=== PATIENT | male | born 1985 | race Caucasian/White ===

== ENCOUNTER 2024-05-25 09:12 | Inpatient (IN) | payer OTHER ==
[2024-05-25] MEDS ORDERED: morphine SULFATE 4 MG/ML VIAL ONE (10:48)
[2024-05-25] MEDS: morphine CARPU-JECT 4 MG/1 ML DISP.SYRIN IVPUSH ONE (10:51)
[2024-05-25] MEDS: ONDANSETRON 4 MG/2 ML VIAL IVPUSH ONE (11:48)
[2024-05-25] MEDS ORDERED: KETOROLAC TROMETHAMINE 30 MG/1 ML VIAL ONE (12:47)
[2024-05-25] MEDS: KETOROLAC TROMETHAMINE 15 MG/ML VIAL IM ONE (12:52)
[2024-05-25 15:06] LABS: EPI CELLS 13 /uL (0-25.1); HYALINE CASTS 1 /uL (0-3.1); URINE APPEARANCE TURBID; URINE BACTERIA 9 /uL (0-1359); URINE BILIRUBIN NEGATIVE (NEGATIVE); URINE COLOR YELLOW; URINE GLUCOSE (UA) NEGATIVE (NEGATIVE); URINE KETONE TRACE (NEGATIVE); URINE LEUK ESTERASE NEGATIVE (NEGATIVE); URINE NITRITE NEGATIVE (NEGATIVE); URINE PROTEIN 1+ (NEGATIVE); URINE RBC 31 /uL (0-23.9); URINE UROBILINOGEN 0.2 mg/dL (0.2-1.0); URINE WBC 43 /uL (0-25.8)
[2024-05-25 15:50] LABS: BASO % 0.3 % (0-2.0); HEMATOCRIT 42.5 % (35.4-49); HEMOGLOBIN 14.5 GM/dL (11.7-16.9); LYMPH % 8.5 % (8-40); MCH 28.9 pg (25.7-33.7); MCHC 34.1 g/dl (32.0-35.9); MEAN CELL VOLUME 84.7 fl (80-96); MEAN PLT VOLUME 7.1 fl (7.5-11.1); MONO % 4.7 % (3.8-10.2); NEUT % 86.5 % (42.8-82.8); PLATELET COUNT 344 10^3/uL (134-434); RBC 5.02 M/mm3 (4.00-5.60); RDW 13.7 % (11.9-15.9); WHITE BLOOD COUNT 13.5 K/mm3 (4.0-10.0)
[2024-05-25 16:12] LABS: POTASSIUM 4.1 mmol/L (3.5-5.1)
[2024-05-25 16:15] LABS: ALBUMIN 3.8 g/dl (3.4-5.0); BLOOD UREA NITROGEN 13.6 mg/dL (7-18)
[2024-05-25 16:18] LABS: CREATININE 1.2 mg/dL (0.55-1.3)
[2024-05-25 16:19] LABS: BILIRUBIN,TOTAL 0.8 mg/dL (0.2-1); TOT PROT 7.2 g/dl (6.4-8.2)
[2024-05-25] MEDS ORDERED: CEFTRIAXONE 1 GM/50 ML BAG ONE (18:08)
[2024-05-25] MEDS: CEFTRIAXONE 1,000 MG in DEXTROSE 5%-WATER - 50 ML IVPB ONE (18:18)
[2024-05-26] MEDS ORDERED: ACETAMINOPHEN 1000 MG/100 ML BAG IVPB PRN (00:19)
[2024-05-26] MEDS: KETOROLAC TROMETHAMINE 15 MG/ML VIAL IVPUSH PRN (01:06)
[2024-05-26] MEDS ORDERED: morphine SULFATE 4 MG/ML VIAL IM PRN (02:02)
[2024-05-26] MEDS ORDERED: morphine SULFATE 4 MG/ML VIAL IVPUSH PRN (02:43)
[2024-05-26 06:19] VITALS: BMI 26.5
[2024-05-26 07:36] LABS: BASO % 0.3 % (0-2.0); EOS % 0.1 % (0-4.5); HEMATOCRIT 42.2 % (35.4-49); HEMOGLOBIN 14.1 GM/dL (11.7-16.9); LYMPH % 13.4 % (8-40); MCH 28.7 pg (25.7-33.7); MCHC 33.4 g/dl (32.0-35.9); MEAN CELL VOLUME 85.8 fl (80-96); MEAN PLT VOLUME 7.2 fl (7.5-11.1); MONO % 10.3 % (3.8-10.2); NEUT % 75.9 % (42.8-82.8); PLATELET COUNT 324 10^3/uL (134-434); RBC 4.92 M/mm3 (4.00-5.60); RDW 13.3 % (11.9-15.9); WHITE BLOOD COUNT 11.8 K/mm3 (4.0-10.0)
[2024-05-26 07:42] LABS: INR 1.01 (0.83-1.09); PROTHROMBIN TIME (PATIENT) 11.4 SEC (9.7-13.0)
[2024-05-26 08:06] LABS: ALBUMIN 3.6 g/dl (3.4-5.0)
[2024-05-26 08:07] LABS: BLOOD UREA NITROGEN 16.5 mg/dL (7-18)
[2024-05-26 08:10] LABS: CREATININE 1.6 mg/dL (0.55-1.3); PHOSPHOROUS 2.6 mg/dL (2.5-4.9)
[2024-05-26 08:11] LABS: BILIRUBIN,TOTAL 0.9 mg/dL (0.2-1); TOT PROT 6.8 g/dl (6.4-8.2)
[2024-05-26] MEDS ORDERED: LIDOCAINE HCL/PF 2% SDV 5ML VIAL ONE (08:19)
[2024-05-26] MEDS ORDERED: PROPOFOL 20 ML ONE (08:19)
[2024-05-26] MEDS ORDERED: MIDAZOLAM HCL 2 MG/2 ML SINGLE DOSE VIAL ONE (08:20)
[2024-05-26] MEDS ORDERED: TAMSULOSIN HCL 0.4 MG CAP PO SCH (08:30)
[2024-05-26] MEDS ORDERED: ONDANSETRON 4 MG/2 ML VIAL ONE (08:37)
[2024-05-26] MEDS ORDERED: KETOROLAC TROMETHAMINE 30 MG/1 ML VIAL ONE (08:37)
[2024-05-26] MEDS: ceFAZolin SODIUM 1 GM VIAL IVPB ONE ×2 (09:25)
[2024-05-26] MEDS ORDERED: DEXAMETHASONE SOD PHOSPHATE 4 MG/1 ML VIAL ONE (09:26)
[2024-05-26] MEDS ORDERED: ceFAZolin SODIUM 1 GM VIAL ONE (09:26)
[2024-05-26] MEDS ORDERED: PROMETHAZINE HCL 25 MG/1 ML VIAL IVPB PRN (09:35)
[2024-05-26] MEDS ORDERED: ONDANSETRON 4 MG/2 ML VIAL IVPUSH PRN (09:35)
[2024-05-26] MEDS: ACETAMINOPHEN 1000 MG/100 ML BAG IVPB ONE (10:31)
[2024-05-26 11:29] VITALS: RESP 18
[2024-05-26] MEDS: ACETAMINOPHEN 1000 MG/100 ML BAG IVPB SCH ×2 (11:54→17:30)
[2024-05-26] MEDS: SODIUM CHLORIDE 1,000 ML IV SCH ×3 (11:54→12:43)
[2024-05-26] MEDS: TAMSULOSIN HCL 0.4 MG CAP PO SCH (11:55)
[2024-05-26] MEDS: LACTATED RINGERS SOLUTION 1,000 ML IV SCH (11:56)
[2024-05-26] MEDS ORDERED: CEFTRIAXONE 1 GM in DEXTROSE 5%-WATER - 50 ML IVPB SCH (16:00)
[2024-05-26] MEDS: CEFTRIAXONE 1 GM in DEXTROSE 5%-WATER - 50 ML IVPB SCH (16:41)
[2024-05-27] MEDS: TAMSULOSIN HCL 0.4 MG CAP PO SCH (09:26)
[2024-05-27 10:35] LABS: BASO % 0.4 % (0-2.0); EOS % 0.3 % (0-4.5); HEMATOCRIT 36.4 % (35.4-49); HEMOGLOBIN 12.7 GM/dL (11.7-16.9); MCH 29.5 pg (25.7-33.7); MCHC 34.8 g/dl (32.0-35.9); MEAN CELL VOLUME 84.7 fl (80-96); MEAN PLT VOLUME 7.8 fl (7.5-11.1); MONO % 7.5 % (3.8-10.2); NEUT % 72.8 % (42.8-82.8); PLATELET COUNT 305 10^3/uL (134-434); RDW 13.8 % (11.9-15.9)
[2024-05-27 10:50] LABS: POTASSIUM 3.8 mmol/L (3.5-5.1)
[2024-05-27 11:07] LABS: ALBUMIN 3.3 g/dl (3.4-5.0); BLOOD UREA NITROGEN 17.5 mg/dL (7-18); CALCIUM 8.7 mg/dL (8.5-10.1)
[2024-05-27 11:11] LABS: CREATININE 1.1 mg/dL (0.55-1.3)
[2024-05-27 11:13] LABS: BILIRUBIN,TOTAL 0.5 mg/dL (0.2-1); TOT PROT 6.2 g/dl (6.4-8.2)
[2024-05-27 15:41] VITALS: BP 156/100; PULSE 86; TEMP 98.6
[2024-05-27] MEDS ORDERED: SODIUM CHLORIDE 1,000 ML IV SCH (15:51)
== END 2024-05-27 18:03 | disposition home or self-care (01) | DRG 463 ==
LOC: JER 09:12 → JERBED 15:37 → J5S 05-26 00:45
PROVIDERS: ADMIT Internal Medicine; ATTEND Internal Medicine
PROC: 0T9B80Z Drainage of Bladder with Drainage Device, Via Natural or Artificial Opening Endoscopic (ICD-10-PCS; 2024-05-26)
PROC: 0T9 Urinary System, Drainage (ICD-10-PCS; principal; 2024-05-26 08:30)
DX: N13.6 Pyonephrosis (principal); I10 Essential (primary) hypertension; R50.9 Fever, unspecified; R11.0 Nausea; N17.9 Acute kidney failure, unspecified
CPT/HCPCS: 36415; 74176-TC; 76000-TC-FY; 76870-TC; 80053; 81003; 83735; 84100; 85025; 85610; 87086; 93005; 93010; 94760; 99285-25; C1758; C2617; J0131

== ENCOUNTER 2024-06-15 04:36 | Day surgery (SDC) | payer OTHER ==
[2024-06-14 14:45] VITALS: BMI 27.0
[2024-06-15] MEDS ORDERED: MIDAZOLAM HCL 2 MG/2 ML SINGLE DOSE VIAL ONE (13:27)
[2024-06-15] MEDS ORDERED: DEXAMETHASONE SOD PHOSPHATE 4 MG/1 ML VIAL ONE (13:27)
[2024-06-15] MEDS ORDERED: ONDANSETRON 4 MG/2 ML VIAL ONE (13:27)
[2024-06-15] MEDS ORDERED: PROPOFOL 20 ML ONE (13:27)
[2024-06-15] MEDS ORDERED: LIDOCAINE HCL/PF 2% SDV 5ML VIAL ONE (13:27)
[2024-06-15] MEDS ORDERED: SEVOFLURANE 250 ML BTL ONE (13:28)
[2024-06-15] MEDS ORDERED: ceFAZolin SODIUM 1 GM VIAL ONE (13:50)
[2024-06-15] MEDS: ceFAZolin SODIUM 1 GM VIAL IVPB ONE ×2 (13:52)
[2024-06-15] MEDS ORDERED: KETOROLAC TROMETHAMINE 30 MG/1 ML VIAL ONE (14:00)
[2024-06-15] MEDS ORDERED: ACETAMINOPHEN 1000 MG/100 ML BAG IVPB PRN (14:21)
[2024-06-15] MEDS ORDERED: ONDANSETRON 4 MG/2 ML VIAL IVPUSH PRN (14:21)
[2024-06-15] MEDS ORDERED: oxyCODONE HCL 5 MG TABLET PO PRN (14:21)
[2024-06-15] MEDS ORDERED: LACTATED RINGERS SOLUTION 1,000 ML IV SCH (14:30)
[2024-06-15 15:27] VITALS: RESP 18
[2024-06-15 16:05] VITALS: BP 147/96; PULSE 85; TEMP 97.1
== END 2024-06-15 17:30 | disposition home or self-care (01) ==
LOC: JASU-SURG 04:36
PROVIDERS: ATTEND Urology
PROC: 0T768DZ Dilation of Right Ureter with Intraluminal Device, Via Natural or Artificial Opening Endoscopic (ICD-10-PCS; 2024-06-15)
PROC: 0TP98DZ Removal of Intraluminal Device from Ureter, Via Natural or Artificial Opening Endoscopic (ICD-10-PCS; principal; 2024-06-15 13:00)
DX: N20.1 Calculus of ureter (principal)
CPT/HCPCS: 76000-TC-FY; 94760; C1758